=== PATIENT | female | born 1945 | race American Indian/Alaskan Native ===

== ENCOUNTER 2018-11-19 13:46 | Inpatient (IN) | payer MEDICARE ==
[2018-11-19] MEDS ORDERED: NACL 0.9% 1000 ML 1,000 ML IV ONE (14:29)
[2018-11-19 14:37] LABS: Basophils % (Auto) 0.4 % (0.0-1.8); Eosinophils # (Auto) 0.2 K/mm3 (0.0-0.4); Eosinophils % (Auto) 3.4 % (0.0-4.3); Hematocrit 28.7 % (30.3-42.9); Hemoglobin 9.2 gm/dl (10.1-14.3); Lymphocytes # (Auto) 1.2 K/mm3 (1.2-5.4); Lymphocytes % (Auto) 22.9 % (13.4-35.0); Mean Corpuscular HGB Conc 32 % (30-34); Mean Corpuscular Volume 78 fl (79-97); Monocytes # (Auto) 0.6 K/mm3 (0.0-0.8); Monocytes % (Auto) 11.6 % (0.0-7.3); Platelet Count 266 K/mm3 (140-440); Red Cell Distribution Width 17.6 % (13.2-15.2)
[2018-11-19 14:57] LABS: Creatine Kinase MB 2.7 ng/mL (0.0-4.0)
[2018-11-19 14:58] LABS: Alanine Aminotransferase 14 units/L (7-56); Albumin 3.2 g/dL (3.9-5); BUN/Creatinine Ratio 33; Blood Urea Nitrogen 26 mg/dL (7-17); Calcium 8.7 mg/dL (8.4-10.2); Hemolysis Index 4
--- NOTE | 2018-11-19 15:01 | Emergency Department Report ---
ED Syncope HPI - General Chief Complaint: Syncope Stated Complaint: GLF/HEAD PAIN Time Seen by Provider: 11/19/18 14:23 Source: patient Exam Limitations: no limitations - History of Present Illness Initial Comments: 73-year-old female with a past medical history type 2 diabetes with insulin use, dementia, major depressive disorder with psychosis, CHF, CAD, hypertension, and GERD presents to the hospital after having a syncopal episode with head injury at the memory care unit at [place]. Patient complains of headache after the fall. Patient cannot recall the details of the event. She complains of 6/10 head pain but denies any neck pain, chest pain, shortness of breath, or abdominal pain. - Related Data Allergies/Adverse Reactions: Allergies No Known Allergies Allergy (Unverified 11/19/18 14:09) ED Review of Systems ROS: Stated complaint: GLF/HEAD PAIN Other details as noted in HPI Comment: All other systems reviewed and negative ED Past Medical Hx - Past Medical History Previous Medical History?: Yes Hx Dementia: Yes Additional medical history: poor historian - Surgical History Past Surgical History?: No Additional Surgical History: unknown; poor historian - Social History Smoking Status: Never Smoker Substance Use Type: None ED Physical Exam - General Limitations: No Limitations - Other Other exam information: General: No limitations, patient is alert in no acute distress Head exam: Atraumatic, normocephalic Eyes exam: Left pupil is larger side than the right pupil which patient states is been chronic for years. Pupils reactive. Extraocular movements intact. ENT: Moist mucous membrane, normal oropharynx Neck exam: Normal inspection, full range of motion, no meningismus nontender Respiratory exam: Clear to auscultation bilateral, no wheezes, rales, crackles Cardiovascular: Normal rate and rhythm Abdomen: Soft, nondistended, and nontender, with normal bowel sounds, no rebou nd, or guarding Extremity: Full range of motion normal inspection no deformity Back: Normal Inspection, full range of motion, no tenderness Neurologic: Patient is drowsy but easily arousable and follows commands, oriented to self and place, cranial nerves intact, no motor or sensory deficit, [id number] function intact Psychiatric: normal affect, normal mood Skin: Warm, dry, intact ED Course Vital Signs 11/19/18 11/19/18 11/19/18 14:05 14:51 15:00 Temperature 97.7 F Pulse Rate 66 74 80 Respiratory 16 12 20 Rate Blood Pressure 93/43 89/51 98/49 Blood Pressure [Right] O2 Sat by Pulse 100 98 98 Oximetry 11/19/18 11/19/18 11/19/18 15:05 15:31 16:30 Temperature Pulse Rate 78 84 87 Respiratory 22 12 18 Rate Blood Pressure 106/51 101/56 124/62 Blood Pressure [Right] O2 Sat by Pulse 93 98 94 Oximetry 11/19/18 18:00 Temperature Pulse Rate 82 Respiratory 16 Rate Blood Pressure Blood Pressure 125/68 [Right] O2 Sat by Pulse 95 Oximetry ED Medical Decision Making - Lab Data Result diagrams: 11/19/18 14:28 11/19/18 14:28 Lab Results 11/19/18 11/19/18 11/19/18 Range/Units 14:28 14:28 16:35 WBC 5.2 (4.5-11.0) K/mm3 RBC 3.70 (3.65-5.03) M/mm3 Hgb 9.2 L (10.1-14.3) gm/dl Hct 28.7 L (30.3-42.9) % MCV 78 L (79-97) fl MCH 25 L (28-32) pg MCHC 32 (30-34) % RDW 17.6 H (13.2-15.2) % Plt Count 266 (140-440) K/mm3 Lymph % (Auto) 22.9 (13.4-35.0) % [place] % (Auto) 11.6 H (0.0-7.3) % Eos % (Auto) 3.4 (0.0-4.3) % Baso % (Auto) 0.4 (0.0-1.8) % Lymph # 1.2 (1.2-5.4) K/mm3 [place] # 0.6 (0.0-0.8) K/mm3 Eos # 0.2 (0.0-0.4) K/mm3 Baso # 0.0 (0.0-0.1) K/mm3 Seg Neutrophils % 61.7 (40.0-70.0) % Seg Neutrophils # 3.2 (1.8-7.7) K/mm3 Sodium 138 (137-145) mmol/L Potassium 4.1 (3.6-5.0) mmol/L Chloride 101.0 (98-107) mmol/L Carbon Dioxide 25 (22-30) mmol/L Anion Gap 16 mmol/L BUN 26 H (7-17) mg/dL Creatinine 0.8 (0.7-1.2) mg/dL Estimated GFR > 60 ml/min BUN/Creatinine Ratio 33 % Glucose 115 H (65-100) mg/dL Calcium 8.7 (8.4-10.2) mg/dL Total Bilirubin 0.30 (0.1-1.2) mg/dL AST 20 (5-40) units/L ALT 14 (7-56) units/L Alkaline Phosphatase 77 (35-129) units/L Total Creatine Kinase 93 (30-135) units/L CK-MB (CK-2) 2.7 (0.0-4.0) ng/mL CK-MB (CK-2) Rel Index 2.9 (0-4) Troponin T < 0.010 (0.00-0.029) ng/mL Total Protein 6.6 (6.3-8.2) g/dL Albumin 3.2 L (3.9-5) g/dL Albumin/Globulin Ratio 0.9 % Urine Color Straw (Yellow) Urine Turbidity Clear (Clear) Urine pH 6.0 (5.0-7.0) Ur Specific [place] 1.004 (1.003-1.030) Urine Protein <15 mg/dl (Negative) mg/dL Urine Glucose (UA) Neg (Negative) mg/dL Urine Ketones Neg (Negative) mg/dL Urine Blood Sm (Negative) Urine Nitrite Neg (Negative) Urine Bilirubin Neg (Negative) Urine Urobilinogen < 2.0 (<2.0) mg/dL Ur Leukocyte Esterase Neg (Negative) Urine WBC (Auto) 1.0 (0.0-6.0) /HPF Urine RBC (Auto) 1.0 (0.0-6.0) /HPF U Epithel Cells (Auto) < 1.0 (0-13.0) /HPF Urine Bacteria (Auto) 2+ (Negative) /HPF Hyaline Casts 1 /LPF Urine Mucus Few /HPF - EKG Data -: EKG Interpreted by Me (anterior infarct Old) EKG shows normal: sinus rhythm, axis (qrs 36), QRS complexes (qrsd 86), ST-T waves (no stemi/t inv) Rate: normal - EKG Data When compared to previous EKG there are: previous EKG unavailable - Radiology Data Radiology results: report reviewed FINAL REPORT EXAM: CT HEAD/BRAIN WO CON HISTORY: syncope, head injury COMPARISON: None. TECHNIQUE: Multiple contiguous axial images were obtained from the skullbase to the vertex without administration of IV contrast. FINDINGS: There age related cerebral cortical atrophy. There is no parenchymal hemorrhage or extra-axial fluid collection. There is no mass or mass effect. There is no acute territorial infarct. There is encephalomalacia in the right frontal lobe left parietal lobe, and right occipital lobe, likely due to prior infarct. There are scattered areas of decreased attenuation in the subcortical and periventricular white matter, likely due to chronic microvascular ischemic disease. The ventricles are midline. The subarachnoid spaces and basilar cisterns are clear. There is no skull fracture. Paranasal sinuses and mastoid air cells are clear. IMPRESSION: No acute intracranial abnormality. Chronic microvascular ischemic disease in the subcortical and periventricular white matter. Areas of encephalomalacia in the right frontal lobe, left parietal lobe and right occipital lobe, likely due to prior infarct. FINAL REPORT EXAM: CT CERVICAL SPINE WO CON HISTORY: syncope, head injury TECHNIQUE: Axial helical imaging through the cervical spine with sagittal and coronal reformatted images obtained. Comparison: None FINDINGS: Bony alignment is normal. The vertebral heights and disc spaces are maintained. There is no evidence of significant bony canal or foraminal stenosis. Visualization detail of the contents of the cervical canal is limited by artifact. There is no evidence of fracture or subluxation. The paraspinous soft tissues are unremarkable. On the kiln mechanic view there appears to be deformity of the proximal left humerus suggestive of sequela of previous fracture. This is not well investigated with this study. IMPRESSION: 1. No evidence of fracture or subluxation of the cervical spine. 2. Appearance of sequela of previous left humeral fracture demonstrated on the kiln mechanic image. This is not well investigated with this study. - Medical Decision Making Patient presents with syncopal episode with head injury. CT unremarkable. Initial cardiac enzymes and EKG also unremarkable with exception of old anterior infarct. No previous EKG available for comparison. Patient had mild hypotension upon arrival that improved with 1 L of normal saline. Patient does have mild anemia and elevated BUN to creatinine ratio suggesting dehydration. No further normal saline was provided a give a history of CHF. She will be admitted to the hospital for further evaluation. - Differential Diagnosis ICH, arrhythmia, anemia, dehydration, infection, vasovagal Critical Care Time: No Critical care attestation.: If time is entered above; I have spent that time in minutes in the direct care of this critically ill patient, excluding procedure time. ED Disposition Clinical Impression: Syncope, Anisocoria, Dehydration Disposition: OP ADMIT IP TO THIS HOSP Is pt being admited?: Yes Condition: Stable Time of Disposition: 18:49 (Dr. Owens/Hospitalist)
--- NOTE | 2018-11-19 16:36 | Cat Scan Report ---
FINAL REPORT EXAM: CT HEAD/BRAIN WO CON HISTORY: syncope, head injury COMPARISON: None. TECHNIQUE: Multiple contiguous axial images were obtained from the skullbase to the vertex without a dministration of IV contrast. FINDINGS: There age related cerebral cortical atrophy. There is no parenchymal hemorrhage or extra-axial fluid collection. There is no mass or mass effect. There is no acute territorial infarct. There is encephal omalacia in the right frontal lobe left parietal lobe, and right occipital lobe, likely due to prior infarct. There are scattered areas of decreased attenuation in the subcortical and periventricular wh ite matter, likely due to chronic microvascular ischemic disease. The ventricles are midline. The sub arachnoid spaces and basilar cisterns are clear. There is no skull fracture. Paranasal sinuses and ma stoid air cells are clear. IMPRESSION: No acute intracranial abnormality. Chronic microvascular ischemic disease in the subcortical and periventricular white matter. Areas of encephalomalacia in the right frontal lobe, left parietal lobe and right occipital lobe, lik [place] due to prior infarct.
[2018-11-19 17:28] LABS: Bacteria,Urine 2+ /HPF (Negative); Bilirubin,Urine NEG (Negative); Blood,Urine SM (Negative); Color,Urine Straw (Yellow); Hyaline Casts,Urine 1 /LPF; Mucus,Urine FEW /HPF; Protein,Urine <15 mg/dL mg/dL (Negative); Urobilinogen,Urine < 2.0 mg/dL (<2.0)
--- NOTE | 2018-11-19 19:26 | Cat Scan Report ---
FINAL REPORT EXAM: CT CERVICAL SPINE WO CON HISTORY: syncope, head injury TECHNIQUE: Axial helical imaging through the cervical spine with sagittal and coronal reformatted im ages obtained. Comparison: None FINDINGS: Bony alignment is normal. The vertebral heights and disc spaces are maintained. There is no evidence of significant bony canal or foraminal stenosis. Visualization detail of the contents of the cervical canal is limited by artifact. There is no evidence of fracture or subluxation. The paraspinous soft tissues are unremarkable. On the pulp mixer view there appears to be deformity of the proximal left humerus suggestive of sequela of previous fracture. This is not well investigated with this study. IMPRESSION: 1. No evidence of fracture or subluxation of the cervical spine. 2. Appearance of sequela of previous left humeral fracture demonstrated on the pulp mixer image. This is n ot well investigated with this study.
--- NOTE | 2018-11-19 22:30 | History and Physical Report ---
History of Present Illness Date of examination: 11/19/18 Date of admission: 11/19/18 18:49 Chief complaint: Passed ot at [place] History of present illness: 73 y/of[place] with pmh of T2dm and Dementia sent from [place] for passing out.No Chest pain or SOB.Head injury present. No Exacerbating or relieving factors Past Medical History Previous Medical History?: Yes Hx Dementia: Yes Additional medical history: poor historian Surgical History Past Surgical History?: No Additional Surgical History: unknown; poor historian Social History Smoking Status: Never Smoker Substance Use Type: None Review of Systems ROS: Stated complaint: GLF/HEAD PAIN Other details as noted in HPI Comment: All other systems reviewed and negative Medications and Allergies Allergies Allergy/AdvReac Type Severity Reaction Status Date / Time No Known Allergies Allergy Unverified 11/19/18 14:09 Exam - Constitutional Vitals: Temp Pulse Resp BP Pulse Ox 97.9 F 85 18 121/43 97 11/19/18 20:32 11/19/18 21:03 11/19/18 20:32 11/19/18 20:00 11/19/18 20:00 General appearance: Present: no acute distress, well-nourished - EENT Eyes: Present: PERRL ENT: hearing intact, clear oral mucosa - Neck Neck: Present: supple, normal ROM - Respiratory Respiratory effort: normal Respiratory: bilateral: CTA - Cardiovascular Heart rate: 78 Rhythm: regular Heart Sounds: Present: S1 & S2. Absent: rub, click - Extremities Extremities: pulses symmetrical, No edema Peripheral Pulses: within normal limits - Abdominal General gastrointestinal: Present: soft, non-tender, non-distended, normal bowel sounds Female genitourinary: Present: normal - Rectal Rectal Exam: deferred - Integumentary Integumentary: Present: clear, warm, dry - Musculoskeletal Musculoskeletal: gait normal, strength equal bilaterally - Psychiatric Psychiatric: appropriate mood/affect, intact judgment & insight - Neurologic Neurologic: CNII-XII intact, moves all extremities - Allied Health Allied health notes reviewed: nursing, case management Results - Labs CBC & Chem 7: 11/20/18 05:10 11/20/18 05:10 Labs: Laboratory Last Values WBC 5.2 K/mm3 (4.5-11.0) 11/19/18 14:28 RBC 3.70 M/mm3 (3.65-5.03) 11/19/18 14:28 Hgb 9.2 gm/dl (10.1-14.3) L 11/19/18 14:28 Hct 28.7 % (30.3-42.9) L 11/19/18 14:28 MCV 78 fl (79-97) L 11/19/18 14:28 MCH 25 pg (28-32) L 11/19/18 14:28 MCHC 32 % (30-34) 11/19/18 14:28 RDW 17.6 % (13.2-15.2) H 11/19/18 14:28 Plt Count 266 K/mm3 (140-440) 11/19/18 14:28 Lymph % (Auto) 22.9 % (13.4-35.0) 11/19/18 14:28 [place] % (Auto) 11.6 % (0.0-7.3) H 11/19/18 14:28 Eos % (Auto) 3.4 % (0.0-4.3) 11/19/18 14:28 Baso % (Auto) 0.4 % (0.0-1.8) 11/19/18 14:28 Lymph # 1.2 K/mm3 (1.2-5.4) 11/19/18 14:28 [place] # 0.6 K/mm3 (0.0-0.8) 11/19/18 14:28 Eos # 0.2 K/mm3 (0.0-0.4) 11/19/18 14:28 Baso # 0.0 K/mm3 (0.0-0.1) 11/19/18 14:28 Seg Neutrophils % 61.7 % (40.0-70.0) 11/19/18 14:28 Seg Neutrophils # 3.2 K/mm3 (1.8-7.7) 11/19/18 14:28 Sodium 138 mmol/L (137-145) 11/19/18 14:28 Potassium 4.1 mmol/L (3.6-5.0) 11/19/18 14:28 Chloride 101.0 mmol/L (98-107) 11/19/18 14:28 Carbon Dioxide 25 mmol/L (22-30) 11/19/18 14:28 Anion Gap 16 mmol/L 11/19/18 14:28 BUN 26 mg/dL (7-17) H 11/19/18 14:28 Creatinine 0.8 mg/dL (0.7-1.2) 11/19/18 14:28 Estimated GFR > 60 ml/min 11/19/18 14:28 BUN/Creatinine Ratio 33 % 11/19/18 14:28 Glucose 115 mg/dL (65-100) H 11/19/18 14:28 POC Glucose 250 (70-105) H 11/19/18 21:22 Calcium 8.7 mg/dL (8.4-10.2) 11/19/18 14:28 Total Bilirubin 0.30 mg/dL (0.1-1.2) 11/19/18 14:28 AST 20 units/L (5-40) 11/19/18 14:28 ALT 14 units/L (7-56) 11/19/18 14:28 Alkaline Phosphatase 77 units/L (35-129) 11/19/18 14:28 Total Creatine Kinase 93 units/L (30-135) 11/19/18 14:28 CK-MB (CK-2) 2.7 ng/mL (0.0-4.0) 11/19/18 14:28 CK-MB (CK-2) Rel Index 2.9 (0-4) 11/19/18 14:28 Troponin T < 0.010 ng/mL (0.00-0.029) 11/19/18 14:28 Total Protein 6.6 g/dL (6.3-8.2) 11/19/18 14:28 Albumin 3.2 g/dL (3.9-5) L 11/19/18 14:28 Albumin/Globulin Ratio 0.9 % 11/19/18 14:28 Urine Color Straw (Yellow) 11/19/18 16:35 Urine Turbidity Clear (Clear) 11/19/18 16:35 Urine pH 6.0 (5.0-7.0) 11/19/18 16:35 Ur Specific [place] 1.004 (1.003-1.030) 11/19/18 16:35 Urine Protein <15 mg/dl mg/dL (Negative) 11/19/18 16:35 Urine Glucose (UA) Neg mg/dL (Negative) 11/19/18 16:35 Urine Ketones Neg mg/dL (Negative) 11/19/18 16:35 Urine Blood Sm (Negative) 11/19/18 16:35 Urine Nitrite Neg (Negative) 11/19/18 16:35 Urine Bilirubin Neg (Negative) 11/19/18 16:35 Urine Urobilinogen < 2.0 mg/dL (<2.0) 11/19/18 16:35 Ur Leukocyte Esterase Neg (Negative) 11/19/18 16:35 Urine WBC (Auto) 1.0 /HPF (0.0-6.0) 11/19/18 16:35 Urine RBC (Auto) 1.0 /HPF (0.0-6.0) 11/19/18 16:35 U Epithel Cells (Auto) < 1.0 /HPF (0-13.0) 11/19/18 16:35 Urine Bacteria (Auto) 2+ /HPF (Negative) 11/19/18 16:35 Hyaline Casts 1 /LPF 11/19/18 16:35 Urine Mucus Few /HPF 11/19/18 16:35 - Imaging and Cardiology EKG: report reviewed Assessment and Plan Advance Directives: Yes (Full code) VTE prophylaxis?: Chemical Plan of care discussed with patient/family: Yes - Patient Problems (1) Syncope Current Visit: Yes Status: Acute Qualifiers: Syncope type: unspecified Qualified Code(s): R55 - Syncope and collapse Plan to address problem: Syncope w/u Lexiscan and Echo ordered Also Carotid Duplex scan (2) Dehydration Current Visit: Yes Status: Acute Plan to address problem: IV Fluids for now (3) Dementia Current Visit: Yes Status: Chronic Qualifiers: Alzheimer's disease onset: unspecified onset Plan to address problem: Not on any meds as per ED sheet (4) Anemia Current Visit: Yes Status: Chronic Qualifiers: Anemia type: iron deficiency Plan to address problem: Iron levels ordered (5) DVT prophylaxis Current Visit: Yes Status: Acute Plan to address problem: On Lovenox and GI prophylaxis
[2018-11-19] MEDS ORDERED: SODIUM CHLORIDE FLUSH SYRINGE 10 ML IV PRN (22:35)
[2018-11-19] MEDS ORDERED: ZOFRAN IV PRN (22:35)
[2018-11-19] MEDS ORDERED: IBUPROFEN PO PRN (22:36)
[2018-11-19] MEDS ORDERED: DILAUDID IV PRN (22:36)
[2018-11-19] MEDS ORDERED: NACL 0.9% 1000 ML 1,000 ML IV SCH (23:00)
[2018-11-20] MEDS: SODIUM CHLORIDE FLUSH SYRINGE 10 ML IV SCH ×3 (00:37→21:43)
[2018-11-20 05:51] LABS: Basophils % (Auto) 0.4 % (0.0-1.8); Eosinophils # (Auto) 0.1 K/mm3 (0.0-0.4); Eosinophils % (Auto) 2.3 % (0.0-4.3); Hematocrit 29.4 % (30.3-42.9); Hemoglobin 9.4 gm/dl (10.1-14.3); Lymphocytes # (Auto) 1.3 K/mm3 (1.2-5.4); Lymphocytes % (Auto) 22.9 % (13.4-35.0); Mean Corpuscular HGB Conc 32 % (30-34); Mean Corpuscular Volume 78 fl (79-97); Monocytes # (Auto) 0.6 K/mm3 (0.0-0.8); Monocytes % (Auto) 10.6 % (0.0-7.3); Platelet Count 266 K/mm3 (140-440); Red Blood Count 3.76 M/mm3 (3.65-5.03); Red Cell Distribution Width 17.5 % (13.2-15.2)
[2018-11-20 06:25] LABS: Alanine Aminotransferase 12 units/L (7-56); Albumin 3.5 g/dL (3.9-5); BUN/Creatinine Ratio 35; Blood Urea Nitrogen 14 mg/dL (7-17); Calcium 8.6 mg/dL (8.4-10.2); Hemolysis Index 27
[2018-11-20] MEDS: TYLENOL PO PRN ×2 (08:28→21:39)
[2018-11-20 08:36] LABS: % Iron Saturation 10.78 %
[2018-11-20] MEDS ORDERED: LEXISCAN IV ONE ×2 (09:29)
[2018-11-20] MEDS: PEPCID PO SCH ×2 (12:47→21:40)
--- NOTE | 2018-11-20 13:26 | Vascular Lab Report ---
FINAL REPORT EXAM: VL CAROTID DUPLEX BILAT HISTORY: syncope COMPARISON: None. TECHNIQUE: Duplex Doppler ultrasound of the carotid arteries was performed. FINDINGS: There is a small amount heterogeneous atherosclerotic plaque in the right carotid bulb and proximal r ight internal carotid artery, causing less than 50 percent stenosis. The right vertebral artery is pa tent and antegrade in flow. There is a small amount of hydroureter is atherosclerotic plaque in the left carotid bulb and proxima l left internal carotid artery, causing less than 50 percent stenosis. The left vertebral artery is p atent and antegrade in flow. Peak systolic velocities (cm/sec) are as follows: Right common carotid artery: 76.2 Right internal carotid artery: 77.3 Right external carotid artery: 93.1 Left common carotid artery: 82.8 Left internal carotid artery: 100.6 Left external carotid artery: 87.8 Peak systolic velocity ratio between the right internal carotid artery and the right common carotid a rtery: 1.01 Peak systolic velocity ratio between the left internal carotid artery and left common carotid artery: 1.21 IMPRESSION: Atherosclerotic disease of the right carotid bulb and proximal right internal carotid artery, causing less than 50 percent stenosis. Atherosclerotic disease of the left carotid bulb and proximal left internal carotid artery, causing l ess than 50 percent stenosis.
--- NOTE | 2018-11-20 14:18 | Progress Note ---
Assessment and Plan / Syncope Continue Syncope w/u Lexiscan and Echo ordered, Carotid Duplex scan ordered s/p lexiscan today, will follow result CT head w/o any acute findings / Dehydration IV Fluids for now / Dementia Not on any meds as per ED sheet, will get records from pharmacy / Anemia Iron levels ordered / DVT prophylaxis On Lovenox Subjective Date of service: 11/20/18 Interval history: Patient seen and examined No acute event o/n, slightly agitated Denies any chest pain or SOB Objective - Constitutional Vitals: Vital Signs - 12hr 11/20/18 11/20/18 11/20/18 09:38 09:57 09:58 Pulse Rate 81 95 H 33 L Blood Pressure 131/73 130/75 125/71 11/20/18 11/20/18 11/20/18 09:59 10:00 10:01 Pulse Rate 87 107 H 103 H Blood Pressure 125/71 89/50 139/77 11/20/18 10:02 Pulse Rate 99 H Blood Pressure 145/73 General appearance: Present: no acute distress, well-nourished - EENT Eyes: PERRL, EOM intact ENT: hearing intact, clear oral mucosa Ears: bilateral: normal - Neck Neck: supple, normal ROM - Respiratory Respiratory effort: normal Respiratory: bilateral: CTA - Cardiovascular Rhythm: regular Heart Sounds: Present: S1 & S2. Absent: gallop, rub Extremities: pulses intact, No edema, normal color, Full ROM - Gastrointestinal General gastrointestinal: Present: soft, non-tender, non-distended, normal bowel sounds - Integumentary Integumentary: clear, warm, dry - Musculoskeletal Musculoskeletal: 1, strength equal bilaterally - Neurologic Neurologic: moves all extremities - Psychiatric Psychiatric: appropriate mood/affect, no intact judgment & insight, no memory intact - Labs CBC & Chem 7: 11/20/18 05:10 11/20/18 05:10 Labs: Abnormal lab results 11/19/18 11/19/18 11/19/18 Range/Units 14:28 14:28 21:22 Hgb 9.2 L (10.1-14.3) gm/dl Hct 28.7 L (30.3-42.9) % MCV 78 L (79-97) fl MCH 25 L (28-32) pg RDW 17.6 H (13.2-15.2) % [place] % (Auto) 11.6 H (0.0-7.3) % BUN 26 H (7-17) mg/dL Creatinine (0.7-1.2) mg/dL Glucose 115 H (65-100) mg/dL POC Glucose 250 H (70-105) Iron (37-170) ug/dL Total Protein (6.3-8.2) g/dL Albumin 3.2 L (3.9-5) g/dL 11/20/18 11/20/18 11/20/18 Range/Units 05:10 05:10 05:36 Hgb 9.4 L (10.1-14.3) gm/dl Hct 29.4 L (30.3-42.9) % MCV 78 L (79-97) fl MCH 25 L (28-32) pg RDW 17.5 H (13.2-15.2) % [place] % (Auto) 10.6 H (0.0-7.3) % BUN (7-17) mg/dL Creatinine 0.4 L (0.7-1.2) mg/dL Glucose 132 H (65-100) mg/dL POC Glucose 141 H (70-105) Iron (37-170) ug/dL Total Protein 6.0 L (6.3-8.2) g/dL Albumin 3.5 L (3.9-5) g/dL 11/20/18 11/20/18 Range/Units 07:25 12:46 Hgb (10.1-14.3) gm/dl Hct (30.3-42.9) % MCV (79-97) fl MCH (28-32) pg RDW (13.2-15.2) % [place] % (Auto) (0.0-7.3) % BUN (7-17) mg/dL Creatinine (0.7-1.2) mg/dL Glucose (65-100) mg/dL POC Glucose 206 H (70-105) Iron 29 L (37-170) ug/dL Total Protein (6.3-8.2) g/dL Albumin (3.9-5) g/dL
--- NOTE | 2018-11-20 15:29 | Treadmill Report ---
NUCLEAR PERFUSION SCAN REFERRING PHYSICIAN: Dr. Owens. PROTOCOL: The patient was brought to the stress lab in a postabsorptive state, given 10 mCi of technetium 99m at rest. The patient underwent rest imaging. The patient underwent Lexiscan stress test. At peak stress, the patient was given 32 mCi of technetium 99m. Shortly thereafter, the patient underwent stress imaging. Raw imaging reveals mild GI artifact, no significant motion artifact. Technically difficult study due to GI artifact. SPECT imaging examined carefully in horizontal long axis, vertical long axis, short axis views. Grossly, this is probably a normal study without a significant degree of ischemia or prior infarction ____ partially obscured by GI artifact, especially in the resting imaging. Gated wall motion reveals normal systolic thickening, calculated ejection fraction of 50%. No TID. CONCLUSIONS: 1. Technically difficult study, but grossly probably normal without evidence of significant degree of ischemia or prior infarction. 2. Normal left ventricular systolic performance without evidence of transient ischemic dilatation or stress-induced segmental wall motion abnormalities. JOB# [id number] SBM/NTS
[2018-11-21] MEDS: PEPCID PO SCH ×2 (10:22→21:08)
[2018-11-21] MEDS: SODIUM CHLORIDE FLUSH SYRINGE 10 ML IV SCH (10:22)
[2018-11-21] MEDS: TYLENOL PO PRN (17:18)
[2018-11-21] MEDS ORDERED: HALDOL IM PRN ×2 (17:42→17:55)
--- NOTE | 2018-11-21 17:55 | Progress Note ---
Assessment and Plan / Syncope, likely vasovagal Continue Syncope w/u Lexiscan negative and Echo with preserved EF, Carotid Duplex scan <50% stenosis CT head w/o any acute findings / Dehydration , IV Fluids given / Dementia will resume home meds / Anemia, iron deficient will place on iron pills / DVT prophylaxis On Lovenox Disposition: Granddaughter requested for placement, CM notified Subjective Date of service: 11/21/18 Interval history: Patient seen and examined No acute event o/n, granddaughter at bedside Denies any chest pain or SOB Objective - Exam Narrative Exam: General appearance: Present: no acute distress, well-nourished - EENT Eyes: PERRL, EOM intact ENT: hearing intact, clear oral mucosa Ears: bilateral: normal - Neck Neck: supple, normal ROM - Respiratory Respiratory effort: normal Respiratory: bilateral: CTA - Cardiovascular Rhythm: regular Heart Sounds: Present: S1 & S2. Absent: gallop, rub Extremities: pulses intact, No edema, normal color, Full ROM - Gastrointestinal General gastrointestinal: Present: soft, non-tender, non-distended, normal bowel sounds - Integumentary Integumentary: clear, warm, dry - Musculoskeletal Musculoskeletal: 1, strength equal bilaterally - Neurologic Neurologic: moves all extremities - Psychiatric Psychiatric: appropriate mood/affect, no intact judgment & insight, no memory intact - Constitutional Vitals: Vital Signs - 12hr 11/21/18 11/21/18 07:48 13:33 Temperature 98.8 F Pulse Rate 86 Respiratory 20 20 Rate Blood Pressure 127/55 120/63 O2 Sat by Pulse 96 Oximetry - Labs CBC & Chem 7: 11/20/18 05:10 11/20/18 05:10 Labs: Abnormal lab results 11/20/18 11/20/18 11/21/18 Range/Units 16:04 21:08 07:45 POC Glucose 259 H 271 H 152 H (70-105) 11/21/18 11/21/18 Range/Units 11:39 16:18 POC Glucose 182 H 213 H (70-105)
[2018-11-21] MEDS: ARICEPT PO SCH (21:39)
[2018-11-21] MEDS: PROzac PO SCH (21:39)
[2018-11-21] MEDS ORDERED: NON-FORMULARY (Detemir (Nf) 10 UNITS) SUB-Q SCH (22:00)
[2018-11-21] MEDS ORDERED: ARICEPT 10 MG PO SCH (22:00)
[2018-11-21] MEDS ORDERED: NON-FORMULARY (Quetiapine Fumarate [Seroquel] 50 MG) PO SCH (22:00)
[2018-11-21] MEDS: PLAVIX PO SCH (22:33)
[2018-11-21] MEDS: ZESTRIL PO SCH (22:33)
[2018-11-21] MEDS: COREG PO SCH (22:34)
[2018-11-22] MEDS: SODIUM CHLORIDE FLUSH SYRINGE 10 ML IV SCH ×3 (00:13→22:39)
[2018-11-22] MEDS: LANTUS SUB-Q SCH ×3 (00:13→22:37)
[2018-11-22] MEDS: PROzac PO SCH (10:19)
[2018-11-22] MEDS: ZESTRIL PO SCH (10:19)
[2018-11-22] MEDS: LASIX PO SCH (10:20)
[2018-11-22] MEDS: COREG PO SCH ×2 (10:21→22:36)
[2018-11-22] MEDS: PROTONIX PO SCH (10:21)
[2018-11-22] MEDS: PLAVIX PO SCH (10:21)
--- NOTE | 2018-11-22 16:01 | Progress Note ---
Assessment and Plan / Syncope, likely vasovagal Continue Syncope w/u Lexiscan negative and Echo with preserved EF, Carotid Duplex scan <50% stenosis CT head w/o any acute findings / Dehydration , IV Fluids given / Dementia will resume home meds / Anemia, iron deficient will place on iron pills / DVT prophylaxis On Lovenox Disposition: Granddaughter requested for placement, CM notified Subjective Date of service: 11/22/18 Interval history: Patient seen and examined No acute event o/n, Denies any chest pain or SOB waiting for placement Objective - Exam Narrative Exam: General appearance: Present: no acute distress, well-nourished - EENT Eyes: PERRL, EOM intact ENT: hearing intact, clear oral mucosa Ears: bilateral: normal - Neck Neck: supple, normal ROM - Respiratory Respiratory effort: normal Respiratory: bilateral: CTA - Cardiovascular Rhythm: regular Heart Sounds: Present: S1 & S2. Absent: gallop, rub Extremities: pulses intact, No edema, normal color, Full ROM - Gastrointestinal General gastrointestinal: Present: soft, non-tender, non-distended, normal bowel sounds - Integumentary Integumentary: clear, warm, dry - Musculoskeletal Musculoskeletal: 1, strength equal bilaterally - Neurologic Neurologic: moves all extremities - Psychiatric Psychiatric: appropriate mood/affect, no intact judgment & insight, no memory intact - Constitutional Vitals: Vital Signs - 12hr 11/22/18 11/22/18 11/22/18 07:55 10:19 10:21 Temperature 97.9 F Pulse Rate 79 79 79 Respiratory 18 Rate Blood Pressure 145/68 145/68 145/68 O2 Sat by Pulse 95 Oximetry 11/22/18 12:57 Temperature 97.7 F Pulse Rate 73 Respiratory 17 Rate Blood Pressure 84/42 O2 Sat by Pulse 98 Oximetry - Labs CBC & Chem 7: 11/20/18 05:10 11/20/18 05:10 Labs: Abnormal lab results 11/21/18 11/21/18 11/22/18 Range/Units 16:18 23:20 08:03 POC Glucose 213 H 162 H 140 H (70-105) 11/22/18 Range/Units 11:07 POC Glucose 267 H (70-105)
[2018-11-22] MEDS: ARICEPT PO SCH (22:36)
[2018-11-23] MEDS: PROzac PO SCH (09:43)
[2018-11-23] MEDS: LASIX PO SCH (09:43)
[2018-11-23] MEDS: PROTONIX PO SCH (09:43)
[2018-11-23] MEDS: PLAVIX PO SCH (09:43)
[2018-11-23] MEDS: SODIUM CHLORIDE FLUSH SYRINGE 10 ML IV SCH ×2 (09:44→21:27)
[2018-11-23] MEDS: COREG PO SCH ×2 (09:44→21:26)
[2018-11-23] MEDS: LANTUS SUB-Q SCH ×2 (09:45→22:39)
[2018-11-23] MEDS: ZESTRIL PO SCH (09:48)
--- NOTE | 2018-11-23 15:28 | Progress Note ---
Assessment and Plan / Syncope, likely vasovagal Continue Syncope w/u Lexiscan negative and Echo with preserved EF, Carotid Duplex scan <50% stenosis CT head w/o any acute findings / Dehydration , IV Fluids given / Dementia will continue home meds / Anemia, iron deficient will cont on iron pills / DVT prophylaxis On Lovenox Disposition: Granddaughter requested for placement, CM notified. Need psych clearance for SNF placement, MH consult placed Subjective Date of service: 11/23/18 Interval history: Patient seen and examined No acute event o/n, Denies any chest pain or SOB waiting for placement Objective - Exam Narrative Exam: General appearance: Present: no acute distress, well-nourished - EENT Eyes: PERRL, EOM intact ENT: hearing intact, clear oral mucosa Ears: bilateral: normal - Neck Neck: supple, normal ROM - Respiratory Respiratory effort: normal Respiratory: bilateral: CTA - Cardiovascular Rhythm: regular Heart Sounds: Present: S1 & S2. Absent: gallop, rub Extremities: pulses intact, No edema, normal color, Full ROM - Gastrointestinal General gastrointestinal: Present: soft, non-tender, non-distended, normal bowel sounds - Integumentary Integumentary: clear, warm, dry - Musculoskeletal Musculoskeletal: 1, strength equal bilaterally - Neurologic Neurologic: moves all extremities - Psychiatric Psychiatric: appropriate mood/affect, no intact judgment & insight, no memory intact - Constitutional Vitals: Vital Signs - 12hr 11/23/18 11/23/18 11/23/18 07:17 07:18 09:44 Temperature 98.2 F Pulse Rate 65 66 65 Pulse Rate [ Right Radial] Respiratory 16 Rate Blood Pressure 118/54 118/54 O2 Sat by Pulse 94 97 Oximetry 11/23/18 11/23/18 11/23/18 09:48 09:52 09:55 Temperature Pulse Rate 65 71 Pulse Rate [ Right Radial] Respiratory Rate Blood Pressure 118/54 125/74 O2 Sat by Pulse Oximetry 11/23/18 11/23/18 10:00 14:24 Temperature 98.2 F Pulse Rate 71 Pulse Rate [ 71 Right Radial] Respiratory 16 18 Rate Blood Pressure 108/54 O2 Sat by Pulse 97 94 Oximetry - Labs CBC & Chem 7: 11/20/18 05:10 11/20/18 05:10 Labs: Abnormal lab results 11/22/18 11/22/18 11/23/18 Range/Units 16:48 21:53 07:19 POC Glucose 156 H 191 H 119 H (70-105) 11/23/18 11/23/18 Range/Units 09:44 11:35 POC Glucose 154 H 136 H (70-105)
[2018-11-23] MEDS: TYLENOL PO PRN (16:07)
[2018-11-23] MEDS: ARICEPT PO SCH (21:25)
[2018-11-24] MEDS: COREG PO SCH ×2 (09:10→21:13)
[2018-11-24] MEDS: LASIX PO SCH (09:15)
[2018-11-24] MEDS: PROTONIX PO SCH (09:15)
[2018-11-24] MEDS: PROzac PO SCH (09:15)
[2018-11-24] MEDS: PLAVIX PO SCH (09:16)
[2018-11-24] MEDS: SODIUM CHLORIDE FLUSH SYRINGE 10 ML IV SCH ×2 (09:16→21:14)
[2018-11-24] MEDS: ZESTRIL PO SCH (09:17)
[2018-11-24] MEDS: LANTUS SUB-Q SCH ×2 (09:21→21:49)
--- NOTE | 2018-11-24 15:46 | Progress Note ---
Assessment and Plan / Syncope, likely vasovagal Continue Syncope w/u Lexiscan negative and Echo with preserved EF, Carotid Duplex scan <50% stenosis CT head w/o any acute findings / Dehydration , IV Fluids given / Dementia will continue home meds / Anemia, iron deficient will cont on iron pills / DVT prophylaxis On Lovenox Disposition: Granddaughter requested for placement, CM notified. Need psych clearance for SNF placement, MH consult placed Subjective Date of service: 11/24/18 Interval history: Patient seen and examined No acute event o/n, Denies any chest pain or SOB waiting for placement Objective - Exam Narrative Exam: General appearance: Present: no acute distress, well-nourished - EENT Eyes: PERRL, EOM intact ENT: hearing intact, clear oral mucosa Ears: bilateral: normal - Neck Neck: supple, normal ROM - Respiratory Respiratory effort: normal Respiratory: bilateral: CTA - Cardiovascular Rhythm: regular Heart Sounds: Present: S1 & S2. Absent: gallop, rub Extremities: pulses intact, No edema, normal color, Full ROM - Gastrointestinal General gastrointestinal: Present: soft, non-tender, non-distended, normal bowel sounds - Integumentary Integumentary: clear, warm, dry - Musculoskeletal Musculoskeletal: 1, strength equal bilaterally - Neurologic Neurologic: moves all extremities - Psychiatric Psychiatric: appropriate mood/affect, no intact judgment & insight, no memory intact - Constitutional Vitals: Vital Signs - 12hr 11/24/18 11/24/18 11/24/18 07:40 09:10 09:17 Temperature 98.2 F Pulse Rate 71 71 71 Pulse Rate [ Right Radial] Respiratory 18 Rate Blood Pressure 94/46 94/46 94/46 O2 Sat by Pulse 95 Oximetry 11/24/18 11/24/18 10:00 13:25 Temperature 98.4 F Pulse Rate 72 Pulse Rate [ 71 Right Radial] Respiratory 18 18 Rate Blood Pressure 93/44 O2 Sat by Pulse 95 97 Oximetry - Labs CBC & Chem 7: 11/25/18 08:25 11/25/18 08:25 Labs: Abnormal lab results 11/23/18 11/23/18 11/24/18 Range/Units 16:11 21:06 07:45 POC Glucose 213 H 162 H 145 H (70-105) 11/24/18 11/24/18 Range/Units 09:23 11:34 POC Glucose 155 H 182 H (70-105)
[2018-11-24] MEDS: ARICEPT PO SCH (21:14)
[2018-11-25 08:42] LABS: Hematocrit 31.8 % (30.3-42.9); Hemoglobin 10.3 gm/dl (10.1-14.3); Mean Corpuscular HGB Conc 32 % (30-34); Mean Corpuscular Volume 78 fl (79-97); Platelet Count 293 K/mm3 (140-440); Red Blood Count 4.08 M/mm3 (3.65-5.03); Red Cell Distribution Width 17.8 % (13.2-15.2)
[2018-11-25 08:56] LABS: BUN/Creatinine Ratio 22; Blood Urea Nitrogen 11 mg/dL (7-17); Calcium 8.8 mg/dL (8.4-10.2); Hemolysis Index 17
[2018-11-25] MEDS: COREG PO SCH ×2 (08:59→22:25)
[2018-11-25] MEDS: ZESTRIL PO SCH (09:00)
[2018-11-25] MEDS: PLAVIX PO SCH (09:00)
[2018-11-25] MEDS: PROTONIX PO SCH (09:00)
[2018-11-25] MEDS: LASIX PO SCH (09:00)
[2018-11-25] MEDS: PROzac PO SCH (09:00)
[2018-11-25] MEDS: SODIUM CHLORIDE FLUSH SYRINGE 10 ML IV SCH (09:01)
[2018-11-25] MEDS: LANTUS SUB-Q SCH ×2 (09:01→16:47)
--- NOTE | 2018-11-25 09:14 | Query- Nutrition ---
Mateus Lomas___Gloria Date:___11/25/2018 Chainsaw Mechanic/CDS:___Kimi/Moi Phone#:___[phone] Exercise your independent professional judgment when responding to query. Questions asked do not imply a particular answer is desired or expected. We greatly appreciate your clarification on this issue. Clinical Documentation States: 73 y/o female with pmh of T2dm and Dementia sent from [facility] for passing out. No Chest pain or SOB. Head injury present. No Exacerbating or relieving factors -Dementia will continue home meds Clinical Findings Show: Albumin: 3.2 Please select the most appropriate option [x] Mild Malnutrition [] Moderate Malnutrition [] Severe Malnutrition Serum Albumin 2.8 to 3.4 g/dl or Pre-albumin 5 to 17 mg/dl1,2 Inadequate nutritional intake1,2,3,4 NPO > 5 days Weight loss: 5% in 1 month or 7.5% in 3 months or 10% in 6 months1, 3,4 BMI 16 to 18.4 or Weight <90% of ideal body weight1,2,3,4 Serum Albumin < 2.8 g/ dl1,2 Lymphocytes < 1500/ L2 Inadequate nutritional intake3, high stress e.g. major trauma, sepsis,pancreatitis, savage etc. Decubitus ulcers1,2, , skin breakdown2, easy hair pluckability2 Weight <80% standard for height2 Triceps skin fold <3 mm2 Mid-arm muscle circumference <15 cm2 Creatinine-height index <60% standard2 [ ] Cachexia [ ] Emaciated w/Malnutrition [ ] Other: [ ] Unable to determine [ ] Comment/Explanation: Present on Admission: [ x] Yes (Y) [ ] Clinically undeterminable (W) [ ] No (N) Please also document response in your Progress Notes and/or Discharge Summary and indicate if the condition was present on admission. MTDD
--- NOTE | 2018-11-25 09:18 | Query-Anemia ---
Mateus Lomas____Gloria Date:__11/25/2018 Real Estate Subagent/CDS:___Kimi/Moi Phone#:__[phone] Exercise your independent professional judgment when responding to this query. Questions asked do not imply a particular answer is desired or expected. We greatly appreciate your clarification on this issue. Clinical Documentation States: 73 y/o female with pmh of T2dm and Dementia sent from [facility] for passing out. No Chest pain or SOB. Head injury present. No Exacerbating or relieving factors Anemia, iron deficient will cont on iron pills Clinical Findings Show: 11/19 11/20 11/25 Hgb 9.2 9.4 10.3 Hct 28.7 29.4 31.8 Etiology: [ ] Anemia due to acute blood loss [ ] Anemia due to chronic blood loss [ ] Anemia secondary to ESRD [ ] Anemia secondary to neoplastic disease [ ] Iron deficiency anemia due to malabsorption [ ] GI Bleed from: [ ] Anemia of chronic disease ,Other: [ ] Precipitous Drop in Hemoglobin [ ] Precipitous Drop in Hematocrit [x ] Other:_likely Nutrition deficient [ ] Unable to determine [ ] Comment/Explanation: Present on Admission: [ x] Yes (Y) [ ] Clinically undeterminable (W) [ ] No (N) Please also document response in your Progress Notes and/or Discharge Summary and indicate if the condition was present on admission. TAVO
--- NOTE | 2018-11-25 14:04 | Progress Note ---
Assessment and Plan / Syncope, likely vasovagal Continue Syncope w/u Lexiscan negative and Echo with preserved EF, Carotid Duplex scan <50% stenosis CT head w/o any acute findings / Dehydration , IV Fluids given / Dementia cont aricept /h/o MDD with recurrent psychosis psych consulted, cont Prozac 40mg po QAM depression/anxiety, Seroquel 50mg po BID mood/psychosis. / Anemia, iron deficient will cont on iron pills / DVT prophylaxis On Lovenox Disposition: Granddaughter requested for placement, CM notified. Need psych clearance for SNF placement, MH consult placed Subjective Date of service: 11/25/18 Interval history: Patient seen and examined No acute event o/n, Denies any chest pain or SOB waiting for placement Objective - Exam Narrative Exam: General appearance: Present: no acute distress, well-nourished - EENT Eyes: PERRL, EOM intact ENT: hearing intact, clear oral mucosa Ears: bilateral: normal - Neck Neck: supple, normal ROM - Respiratory Respiratory effort: normal Respiratory: bilateral: CTA - Cardiovascular Rhythm: regular Heart Sounds: Present: S1 & S2. Absent: gallop, rub Extremities: pulses intact, No edema, normal color, Full ROM - Gastrointestinal General gastrointestinal: Present: soft, non-tender, non-distended, normal bowel sounds - Integumentary Integumentary: clear, warm, dry - Musculoskeletal Musculoskeletal: 1, strength equal bilaterally - Neurologic Neurologic: moves all extremities - Psychiatric Psychiatric: appropriate mood/affect, no intact judgment & insight, no memory intact - Constitutional Vitals: Vital Signs - 12hr 11/25/18 11/25/18 11/25/18 03:16 08:41 08:59 Temperature 98.3 F 98.6 F Pulse Rate 68 72 70 Pulse Rate [ Right Radial] Respiratory 20 18 Rate Blood Pressure 125/66 116/59 101/44 O2 Sat by Pulse 91 98 Oximetry 11/25/18 10:00 Temperature Pulse Rate Pulse Rate [ 72 Right Radial] Respiratory 18 Rate Blood Pressure O2 Sat by Pulse 98 Oximetry - Labs CBC & Chem 7: 11/25/18 08:25 11/25/18 08:25 Labs: Abnormal lab results 11/24/18 11/24/18 11/25/18 Range/Units 16:39 21:50 07:15 WBC (4.5-11.0) K/mm3 MCV (79-97) fl MCH (28-32) pg RDW (13.2-15.2) % Creatinine (0.7-1.2) mg/dL Glucose (65-100) mg/dL POC Glucose 145 H 231 H 128 H (70-105) 11/25/18 11/25/18 11/25/18 Range/Units 08:25 08:25 11:13 WBC 4.3 L (4.5-11.0) K/mm3 MCV 78 L (79-97) fl MCH 25 L (28-32) pg RDW 17.8 H (13.2-15.2) % Creatinine 0.5 L (0.7-1.2) mg/dL Glucose 109 H (65-100) mg/dL POC Glucose 132 H (70-105)
--- NOTE | 2018-11-25 14:11 | Consultation ---
History of Present Illness - Reason for Consult Consult date: 11/25/18 Reason for consult: Initial Psychiatric Evaluation - Chief Complaint Chief complaint: " I've been having chest pain" - History of Present Psychiatric Illness Patient is a 73-year-old white female with a past medical history type 2 diabetes with insulin use, dementia, major depressive disorder with psychosis, CHF, CAD, hypertension, and GERD presents to the hospital after having a syncopal episode with head injury at the memory care unit at [facility]. Today the patient is cooperative but confused during the assessment. Patient is alert and oriented x 1. She denies SI/HI's, A/VH's, and delusions. Per assigned RN patient has been calm and cooperative. No agitation/combative behavior noted. Current Psychiatric Medications: Unable to Assess secondary to confusion/hx of dementia. Past Psychiatric History: MDD, reccurent, severe with psychosis- per record; Unable to Assess secondary to confusion/hx of dementia. Past Psychiatric Medication Trials: Unable to Assess secondary to confusion/hx of dementia. Drug/Alcohol Abuse: Unable to Assess secondary to confusion/hx of dementia. Social History: Unable to Assess secondary to confusion/hx of dementia. Family History: Unable to Assess secondary to confusion/hx of dementia. Medications and Allergies Allergies Allergy/AdvReac Type Severity Reaction Status Date / Time No Known Allergies Allergy Unverified 11/19/18 14:09 Home Medications Medication Instructions Recorded Confirmed Last Taken Type Aricept 10 mg PO QHS 11/21/18 11/21/18 11/18/18 History Atorvastatin Calcium [Lipitor] 40 mg PO QHS 11/21/18 11/21/18 11/18/18 History Carvedilol [Coreg] 3.125 mg PO BID 11/21/18 11/21/18 11/19/18 History Clopidogrel Bisulfate [Plavix] 75 mg PO QDAY 11/21/18 11/21/18 11/19/18 History Detemir (Nf) [Levemir (Nf)] 20 units SUB-Q BID 11/21/18 11/21/18 11/19/18 History FLUoxetine HCL [PROzac] 40 mg PO QDAY 11/21/18 11/21/18 11/19/18 History Furosemide [Lasix TAB] 40 mg PO QDAY 11/21/18 11/21/18 11/19/18 History Lisinopril [Zestril] 5 mg PO QDAY 11/21/18 11/21/18 11/19/18 History Neomy/Baci/Polymyx B Opth Oint 10 inch TRANSDERMA BID 11/21/18 11/21/18 11/19/18 History [Neosporin] Pantoprazole [Protonix] 40 mg PO QDAY 11/21/18 11/21/18 11/19/18 History Quetiapine Fumarate [SEROquel] 50 mg PO BID 11/21/18 11/21/18 11/19/18 History Active Meds: Active Medications Acetaminophen (Tylenol) 650 mg PO Q4H PRN PRN Reason: Pain MILD(1-3)/Fever >100.5/PIERCE Last Admin: 11/23/18 16:07 Dose: 650 mg Documented by: Atorvastatin Calcium (Lipitor) 40 mg PO QHS [facility] Last Admin: 11/24/18 21:14 Dose: 40 mg Documented by: Carvedilol (Coreg) 3.125 mg PO BID [facility] Last Admin: 11/25/18 08:59 Dose: Not Given Documented by: Clopidogrel Bisulfate (Plavix) 75 mg PO QDAY [facility] Last Admin: 11/25/18 09:00 Dose: 75 mg Documented by: Donepezil HCl (Aricept) 10 mg PO QHS [facility] Last Admin: 11/24/18 21:14 Dose: 10 mg Documented by: Fluoxetine HCl (Prozac) 40 mg PO QDAY [facility] Last Admin: 11/25/18 09:00 Dose: 40 mg Documented by: Furosemide (Lasix) 40 mg PO QDAY [facility] Last Admin: 11/25/18 09:00 Dose: 40 mg Documented by: Haloperidol Lactate (Haldol) 2.5 mg IM Q6H PRN PRN Reason: Agitation Hydromorphone HCl (Dilaudid) 0.5 mg IV Q3H PRN PRN Reason: Pain , Severe (7-10) Ibuprofen (Motrin) 600 mg PO Q6H PRN PRN Reason: Pain, Mild (1-3) Insulin Glargine (Lantus) 15 units SUB-Q BIDDIAB [facility] Last Admin: 11/25/18 09:01 Dose: 15 units Documented by: Lisinopril (Zestril) 5 mg PO QDAY [facility] Last Admin: 11/25/18 09:00 Dose: Not Given Documented by: Ondansetron HCl (Zofran) 4 mg IV Q8H PRN PRN Reason: Nausea And Vomiting Pantoprazole Sodium (Protonix) 40 mg PO QDAY [facility] Last Admin: 11/25/18 09:00 Dose: 40 mg Documented by: Quetiapine Fumarate (Seroquel) 50 mg PO BID [facility] Last Admin: 11/25/18 09:00 Dose: 50 mg Documented by: Sodium Chloride (Sodium Chloride Flush Syringe 10 Ml) 10 ml IV BID [facility] Last Admin: 11/25/18 09:01 Dose: Not Given Documented by: Sodium Chloride (Sodium Chloride Flush Syringe 10 Ml) 10 ml IV PRN PRN PRN Reason: LINE FLUSH Mental Status Exam - Vital signs Last Vital Signs Temp 98.6 F 11/25/18 08:41 Pulse 72 11/25/18 10:00 Resp 18 11/25/18 10:00 BP 101/44 11/25/18 08:59 Pulse Ox 98 11/25/18 10:00 - Exam Narrative exam: Mental Status Exam Appearance: calm, cooperative Behavior: regular eye contact Speech: regular rate with a low tone Mood: " I'm alright" Affect: constricted Thought Process: confused Thought Content: denies SI/HI's, AVH's, delusions Motor Activity: sitting up in bed Cognition: A/O x3 Insight: poor Judgment: variable Results Result Diagrams: 11/25/18 08:25 11/25/18 08:25 Abnormal lab results 11/24/18 11/24/18 11/25/18 Range/Units 16:39 21:50 07:15 WBC (4.5-11.0) K/mm3 MCV (79-97) fl MCH (28-32) pg RDW (13.2-15.2) % Creatinine (0.7-1.2) mg/dL Glucose (65-100) mg/dL POC Glucose 145 H 231 H 128 H (70-105) 11/25/18 11/25/18 11/25/18 Range/Units 08:25 08:25 11:13 WBC 4.3 L (4.5-11.0) K/mm3 MCV 78 L (79-97) fl MCH 25 L (28-32) pg RDW 17.8 H (13.2-15.2) % Creatinine 0.5 L (0.7-1.2) mg/dL Glucose 109 H (65-100) mg/dL POC Glucose 132 H (70-105) All other labs normal. Assessment and Plan Assessment and plan: Impression: PMH: Dementia/ Neurocognitive Disorder. PPHx MDD, recurrent, severe with psychosis. Today the patient is calm and cooperative during the assessment. Patient is alert and oriented x 1. No agitation/combative behavior noted/reported. Recommendation/Plan: 1. Will reassess patient in 24 hours. 2. Continue the following medications: Aricept 10mg po QHS memory, Prozac 40mg po QAM depression/anxiety, Seroquel 50mg po BID mood/psychosis. 3. Will monitor mood, psychosis, sleep, appetite, compliance, and side effects. Disposition: Will gain collateral to determine proper disposition. Will staff with Dr. Marixa Andre.
[2018-11-25] MEDS: ARICEPT PO SCH (22:26)
[2018-11-26] MEDS: LANTUS SUB-Q SCH ×2 (08:57→17:18)
[2018-11-26] MEDS: PLAVIX PO SCH (09:12)
[2018-11-26] MEDS: PROzac PO SCH (09:12)
[2018-11-26] MEDS: LASIX PO SCH (09:13)
[2018-11-26] MEDS: PROTONIX PO SCH (09:13)
[2018-11-26] MEDS: SODIUM CHLORIDE FLUSH SYRINGE 10 ML IV SCH ×2 (09:42→21:43)
[2018-11-26] MEDS: COREG PO SCH ×2 (09:42→21:42)
[2018-11-26] MEDS: ZESTRIL PO SCH (09:43)
--- NOTE | 2018-11-26 10:41 | Progress Note ---
Assessment and Plan / Syncope, likely vasovagal Continue Syncope w/u Lexiscan negative and Echo with preserved EF, Carotid Duplex scan <50% stenosis CT head w/o any acute findings / Dehydration , IV Fluids given / Dementia cont aricept /h/o MDD with recurrent psychosis psych consulted, placed on Prozac 40mg po QAM depression/anxiety, Haldol 2.5 mg IM Q6hrs PRN for acute agitation. Start Risperdal 0.5 mg PO HS for agitation, stopped seroquel / Anemia, iron deficient will cont on iron pills / DVT prophylaxis On Lovenox Disposition: Granddaughter requested for placement, CM notified. Need psych clearance for SNF placement, MH consult placed Subjective Date of service: 11/26/18 Interval history: Patient seen and examined No acute event o/n, Denies any chest pain or SOB waiting for placement Objective - Exam Narrative Exam: General appearance: Present: no acute distress, well-nourished - EENT Eyes: PERRL, EOM intact ENT: hearing intact, clear oral mucosa Ears: bilateral: normal - Neck Neck: supple, normal ROM - Respiratory Respiratory effort: normal Respiratory: bilateral: CTA - Cardiovascular Rhythm: regular Heart Sounds: Present: S1 & S2. Absent: gallop, rub Extremities: pulses intact, No edema, normal color, Full ROM - Gastrointestinal General gastrointestinal: Present: soft, non-tender, non-distended, normal bowel sounds - Integumentary Integumentary: clear, warm, dry - Musculoskeletal Musculoskeletal: 1, strength equal bilaterally - Neurologic Neurologic: moves all extremities - Psychiatric Psychiatric: appropriate mood/affect, no intact judgment & insight, no memory intact - Constitutional Vitals: Vital Signs - 12hr 11/26/18 11/26/18 11/26/18 02:31 07:50 09:42 Temperature 98.3 F 99.2 F Pulse Rate 73 68 68 Respiratory 20 20 Rate Blood Pressure 126/62 108/47 108/47 O2 Sat by Pulse 95 94 Oximetry - Labs CBC & Chem 7: 11/25/18 08:25 11/25/18 08:25 Labs: Abnormal lab results 11/25/18 11/25/18 11/25/18 Range/Units 11:13 16:28 21:40 POC Glucose 132 H 211 H 150 H (70-105)
--- NOTE | 2018-11-26 13:44 | Progress Note ---
Subjective - Reason for Consult Consult date: 11/26/18 Reason for consult: Psychiatry Follow-up - Chief Complaint Chief complaint: "I am doing okay" 73-year-old white female with a past medical history type 2 diabetes with insulin use, dementia, major depressive disorder with psychosis, CHF, CAD, hypertension, and GERD presented to the ER from [facility] because of syncope episode. Today the patient is calm and cooperative, but confused during the ass essment. She wasn't able to recall 3 numbers in 5 mins nor state why she was brought to the hospital. Per collateral information from her granddaughter Robina Leyva at [phone], she stated that the patient has a hx of dementia. She stated that she called the police on her grandmother because she was combative at home and the patient was transported to [facility]. She stated that she recently became the patient's master tax advisor. The patient denies SI/HI's and AVH's. No indications of side effects of her medications. Mental Status Exam - Vital signs Last Vital Signs Temp 99.2 F 11/26/18 07:50 Pulse 68 11/26/18 09:42 Resp 20 11/26/18 07:50 BP 108/47 11/26/18 09:42 Pulse Ox 94 11/26/18 07:50 - Exam Narrative exam: MSE: Appearance: calm, cooperative Behavior: regular eye contact Speech: regular rate and tone Mood: "okay" Affect: flat Thought Process: confused Thought Content: denies SI/HI's and AVH's Motor Activity: sitting up in bed Cognition: A/O x 2 Insight: impaired Judgment: variable Assessment and Plan Impression: Dementia/Depression per family member. Today the patient is calm and cooperative, but confused during the assessment. Recommendation/Plan: Continue Aricept 10 mg PO HS for dementia symptoms, Prozac 40 mg PO QAM for depression, and Haldol 2.5 mg IM Q6hrs PRN for acute agitation. Start Risperdal 0.5 mg PO HS for agitation. The benefit of Risperdal outweigh the risk, the patient has a hx of agitation. Will follow up with the patient in 24 hours. Recommend Delirium precautions below: 1. Frequently reorient patient and involve him/her in their care (simple explanations of procedures, tests, medications). 2. Lights on and shades open during daytime hours. 3. Write date and goals of care in a visible place. 4. Try to avoid unnecessary interruptions to sleep during nighttime hours. 5. Obtain glasses, hearing aids from home if patient uses these at baseline. 6. Avoid medications that may exacerbate delirium (especially narcotics, benzodiazepines, barbiturates, ambien, lunesta, and medications with excessive anticholinergic property.). Dispo: The patient is pending SNF placement per Case Mgmt. Will staff with Dr Barroso.
[2018-11-26] MEDS: TYLENOL PO PRN (17:18)
[2018-11-26] MEDS: ARICEPT PO SCH (21:42)
[2018-11-26] MEDS ORDERED: RisperDAL PO SCH ×2 (22:00)
[2018-11-27] MEDS: PROzac PO SCH ×2 (08:35→10:00)
[2018-11-27] MEDS: LASIX PO SCH ×2 (08:36→10:00)
[2018-11-27] MEDS: PROTONIX PO SCH ×2 (08:36→10:00)
[2018-11-27] MEDS: PLAVIX PO SCH ×2 (08:36→10:00)
[2018-11-27] MEDS: LANTUS SUB-Q SCH ×2 (08:37→17:13)
[2018-11-27] MEDS: ZESTRIL PO SCH (10:00)
[2018-11-27] MEDS: SODIUM CHLORIDE FLUSH SYRINGE 10 ML IV SCH (10:00)
[2018-11-27] MEDS: COREG PO SCH (10:00)
--- NOTE | 2018-11-27 13:36 | Progress Note ---
Subjective - Reason for Consult Consult date: 11/27/18 Reason for consult: Psychiatry Follow-up - Chief Complaint Chief complaint: "Hi" 73-year-old white female with a past medical history type 2 diabetes with insulin use, dementia, major depressive disorder with psychosis, CHF, CAD, hypertension, and GERD presented to the ER from [place] because of syncope episode. Today the patient is calm and cooperative, but confused during the assessment. She was at the nurses station. Per the staff, the patient was getting out of bed with out assistance. She was pleasant during the interview. She was able to state her granddaughter's name (Robina) when asked. No gestures of SI/HI's. No indications of side effects of her medications. Mental Status Exam - Vital signs Last Vital Signs Temp 98.0 F 11/27/18 07:33 Pulse 75 11/27/18 10:00 Resp 20 11/27/18 07:33 BP 111/63 11/27/18 10:00 Pulse Ox 98 11/27/18 07:34 - Exam Narrative exam: MSE: Appearance: calm, cooperative Behavior: regular eye contact Speech: regular rate and tone Mood: "okay" Affect: congruent to mood Thought Process: confused Thought Content: no gestures of SI/HI's Motor Activity: sitting up in bed Cognition: A/O x 2 Insight: variable Judgment: variable Assessment and Plan Impression: Dementia/Depression per family member. Today the patient is calm and cooperative, but confused during the assessment. No signs of agitation. Recommendation/Plan: Continue Aricept 10 mg PO HS for dementia symptoms, Prozac 40 mg PO QAM for depression, Haldol 2.5 mg IM Q6hrs PRN for acute agitation, and Risperdal 0.5 mg PO HS for agitation. The benefit of Risperdal outweigh the risk, the patient has a hx of agitation. Psy sign off. Recommend Delirium precautions below: 1. Frequently reorient patient and involve him/her in their care (simple explanations of procedures, tests, medications). 2. Lights on and shades open during daytime hours. 3. Write date and goals of care in a visible place. 4. Try to avoid unnecessary interruptions to sleep during nighttime hours. 5. Obtain glasses, hearing aids from home if patient uses these at baseline. 6. Avoid medications that may exacerbate delirium (especially narcotics, benzodiazepines, barbiturates, ambien, lunesta, and medications with excessive anticholinergic property.). Dispo: The patient is pending SNF placement per Case Mgmt. Will staff with Dr Barroso.
[2018-11-27 15:03] VITALS: BP 110/52
--- NOTE | 2018-11-27 15:41 | Discharge Summary ---
Providers - Providers Date of Admission: 11/19/18 18:49 Date of discharge: 11/27/18 Attending physician: ROWAN MOREIRA 11/20/18 15:26 Physical Therapy Evaluation and Treat [CONS] Routine Comment: Reason For Exam: placement 11/23/18 15:27 Consult to Mental Health [CONS] Routine Reason For Exam: discharge clearance Place consult to:: mental health Notified:: ZEYNEP Hospitalization Reason for admission: syncope Condition: Stable Pertinent studies: Cervical CT, head CT, Carotid doppler Exercise stress test, 2d echocardiogram Hospital course: 73 y/[place] with pmh of T2dm and Dementia sent from [place] for passing out. She was admitted for further evaluation and management. patient was medically optimized, workup done for syncope, treated for psychosis. Patient was then discharged to SNF in stable condition. Discharge diagnosis and management: / Syncope, likely vasovegal from dehydration Lexiscan negative and Echo with preserved EF, Carotid Duplex scan <50% stenosis CT head w/o any acute findings / Dehydration , IV Fluids given, resolved / Dementia, continued aricept /h/o MDD with recurrent psychosis psych consulted, placed on Prozac 40mg po QAM depression/anxiety, Haldol 2.5 mg IM Q6hrs PRN for acute agitation. Started on Risperdal 0.5 mg PO HS for agitation, stopped seroquel / Anemia, iron deficient, will cont on iron pills / DVT prophylaxis Placed On Lovenox Disposition: DC/[facility]-03 SNF W [facility] Time spent for discharge: 34 minutes Core Measure Documentation - Palliative Care Palliative Care/ Comfort Measures: Not Applicable - Core Measures Any of the following diagnoses?: history only Exam - Physical Exam Narrative exam: General appearance: Present: no acute distress, well-nourished - EENT Eyes: PERRL, EOM intact ENT: hearing intact, clear oral mucosa Ears: bilateral: normal - Neck Neck: supple, normal ROM - Respiratory Respiratory effort: normal Respiratory: bilateral: CTA - Cardiovascular Rhythm: regular Heart Sounds: Present: S1 & S2. Absent: gallop, rub Extremities: pulses intact, No edema, normal color, Full ROM - Gastrointestinal General gastrointestinal: Present: soft, non-tender, non-distended, normal bowel sounds - Integumentary Integumentary: clear, warm, dry - Musculoskeletal Musculoskeletal: 1, strength equal bilaterally - Neurologic Neurologic: moves all extremities - Psychiatric Psychiatric: appropriate mood/affect, no intact judgment & insight, no memory intact - Constitutional Vitals: Temp Pulse Resp BP Pulse Ox 98.0 F 84 20 110/52 96 11/27/18 13:30 11/27/18 13:30 11/27/18 13:30 11/27/18 13:30 11/27/18 13:30 Plan Activity: fall precautions Weight Bearing Status: Non-Weight Bearing Diet: low fat Follow up with: DAO OLIVA [Other] - 3-5 Days Prescriptions: risperiDONE [RisperDAL] 0.5 mg PO QHS #30 tablet
--- NOTE | 2018-12-03 10:02 | Query-Altered Level of Consc. ---
Mateus Lomas____Gloria Date:___12/03/2018 Sports Marketing Specialist/CDS:___Vickiedwin/Fred Phone#:___[phone] Exercise your independent professional judgment when responding to this query. Questions asked do not imply a particular answer is desired or expected. We greatly appreciate your clarification on this issue. Clinical Documentation States: 73 y/o female with pmh of T2dm and Dementia sent from [facility] for passing out. Discharge diagnosis "/h/o MDD with recurrent psychosis psych consulted, placed on Prozac 40mg po QAM depression/anxiety, Haldol 2.5 mg IM Q6hrs PRN for acute agitation. Start Risperdal 0.5 mg PO HS for agitation, stopped seroquel." The Psychiatric consult note stated "Current Psychiatric Medications: Unable to Assess secondary to confusion/hx of dementia." Please provide an appropriate diagnosis clarifying the Etiology and Acuity of this clinical scenario: [ ] Metabolic Encephalopathy [ ] Toxic Encephalopathy [ ] Toxic - Metabolic Encephalopathy [ ] Septic Encephalopathy with Sepsis [ ] Septic Encephalopathy without Sepsis [ ] Acute Hepatic Encephalopathy [ ] Subacute Hepatic Encephalopathy [ x] Other:__MDD with recurrent psychosis with underlying dementia [ ] Unable To Determine [ ]Comment/Explanation: Present on Admission: [x ] Yes (Y) [ ] Clinically undeterminable (W) [ ] No (N) Please also document response in your Progress Notes and/or Discharge Summary and indicate if the condition was present on admission. MTDD
== END 2018-11-27 18:22 | DRG 312 ==
LOC: ED 13:46 → 4A 18:49 → 2B-ACE 11-20 20:28
PROVIDERS: ADMIT Internal Medicine; ATTEND Internal Medicine
DX: R55 Syncope and collapse (principal); E44.1 Mild protein-calorie malnutrition; F33.3 Major depressive disorder, recurrent, severe with psychotic symptoms; I95.9 Hypotension, unspecified; E86.0 Dehydration; E11.9 Type 2 diabetes mellitus without complications; G30.9 Alzheimer's disease, unspecified; F02.80 Dementia in other diseases classified elsewhere, unspecified severity, without behavioral disturbance, psychotic disturbance, mood disturbance, and anxiety; D50.9 Iron deficiency anemia, unspecified; I50.9 Heart failure, unspecified; I25.10 Atherosclerotic heart disease of native coronary artery without angina pectoris; K21.9 Gastro-esophageal reflux disease without esophagitis; I11.0 Hypertensive heart disease with heart failure; D53.9 Nutritional anemia, unspecified; H57.02 Anisocoria; Z68.25 Body mass index [BMI] 25.0-25.9, adult; Z79.84 Long term (current) use of oral hypoglycemic drugs; Z79.899 Other long term (current) drug therapy
CPT/HCPCS: 36415; 70450; 72125; 78452; 80048; 80053; 81001; 82550; 82553; 82607; 82747; 82962; 83550; 84484; 85025; 85027; 93005; 93010; 93017; 93306; 93880; 96360; G0378; A9270-GY; A9502; G8978-GP; G8979-GP; G8980-GP; J1815; J2785; J7030